=== PATIENT | male | born 2000 | race African-American/Black ===

== ENCOUNTER 2022-02-06 10:26 | Emergency (ER) | payer MEDICAID ==
[~2022-02-06] VITALS: Ht 165.1 cm; Wt 90.7 kg
[2022-02-06 10:33] VITALS: BP 128/64
[2022-02-06] MEDS ORDERED: IBUP800T27 PO (11:27)
== END 2022-02-06 11:34 | disposition home or self-care (01) ==
LOC: ER 10:26
DX: S43.005A Unspecified dislocation of left shoulder joint, initial encounter (principal); F12.10 Cannabis abuse, uncomplicated; W18.39XA Other fall on same level, initial encounter; Y93.89 Activity, other specified; Y92.89 Other specified places as the place of occurrence of the external cause; Y99.8 Other external cause status
CPT/HCPCS: 73030

== ENCOUNTER 2023-08-31 07:51 | Emergency (ER) | payer MEDICAID ==
[~2023-08-31] VITALS: Ht 165.1 cm; Wt 99.0 kg
[~2023-08-31 07:51] MED LIST: IBUP-1456 PO
[2023-08-31 08:42] VITALS: BP 156/83; TEMP 97.8
[2023-08-31] MEDS ORDERED: ACETAMINOPHEN 500 MG TAB PO ONE (09:30)
[2023-08-31] MEDS ORDERED: PROCHLORPERAZINE EDISYLATE 5 MG/ML 2ML VIAL IM ONE (10:15)
[2023-08-31] MEDS ORDERED: KETOROLAC TROMETH 30 MG/ML 1ML VIAL IM ONE (10:15)
[2023-08-31] MEDS ORDERED: diphenhdrAMINE HCL 25 MG CAP PO ONE (10:15)
[2023-08-31] MEDS ORDERED: MAGN400T40 PO (10:43)
[2023-08-31] MEDS ORDERED: ACET500T58 PO (10:43)
[2023-08-31 10:55] VITALS: PULSE 93; RESP 19; O2SAT 97
== END 2023-08-31 11:01 | disposition home or self-care (01) ==
LOC: ER 07:51
DX: G43.909 Migraine, unspecified, not intractable, without status migrainosus (principal); F15.90 Other stimulant use, unspecified, uncomplicated
CPT/HCPCS: 70450; 96372; 99285; J0780; J1885